=== PATIENT | male | born 1955 | race Caucasian/White ===

== ENCOUNTER 2025-01-26 05:30 | Day surgery (SDC) | payer MEDICARE ==
[2025-01-19 10:45] LABS: MEAN PLATELET VOLUME 8.7 FL (7.4-10.4); PRE OP HEMATOCRIT 46.7 % (42.0-52.0); PRE OP HEMOGLOBIN 15.9 g/dL (14.0-17.9); PRE OP PLATELET COUNT 204 X10'3 (140-440); PRE OP WHITE BLOOD COUNT 6.8 10'3 (4.8-10.8); RED CELL DISTRIBUTION WIDTH 14.3 % (11.5-14.5)
--- NOTE | 2025-01-19 10:56 | ELECTROCARDIOGRAPH REPORT ---
[facility] Test Date: 2025-01-19 Test Time: 10:54:12 Pat Name: KARI DENTON Department: [facility]-PRE-OP Patient ID: [id number] Room: Gender: M Title Attorney: MARIO : 1955 Requested By: ROSS ALMONTE Order Number: [id number] Reading MD: Dr. SOPHIA Bernardo Measurements Intervals [place] Rate: 56 P: 56 SD: 185 QRS: 45 QRSD: 99 T: 64 QT: 416 QTc: 402 Interpretive Statements Sinus bradycardia Electronically Signed On 01-19-2025 17:32:[address] SOPHIA Bernardo Please click the below link to view image of tracing.
[2025-01-19 11:05] LABS: CREATININE 0.88 MG/DL (0.60-1.10); PRE OP ALT 28 U/L (30-65); PRE OP ANION GAP 7 (8-16); PRE OP AST 23 U/L (10-37); PRE OP BILIRUB, TOTAL 0.7 MG/DL (0.0-1.0); PRE OP GLUCOSE 109 MG/DL (70-104); PRE OP POTASSIUM 4.3 MMOL/L (3.4-5.1); PRE OP SODIUM 140 MMOL/L (135-145); TOTAL CARBON DIOXIDE 28.0 MMOL/L (24-32); eGFR 86 ML/MIN
[2025-01-26] VITALS (14 sets, daily range): BP systolic 103–138; BP diastolic 61–87; PULSE 62–94; RESP 15–18; TEMP 97.4; O2SAT 90–98
[~2025-01-26] VITALS: Ht 177.8 cm; Wt 79.5 kg
[~2025-01-26 05:30] MED LIST: ASPI-103 PO; IBUP-1984 PO; MULT-1249 PO; ROSU20TA98 PO
[2025-01-26] MEDS: ringers solution, lacted 1,000 ML IV SCH (06:10)
[2025-01-26] MEDS: clindamycin-Cleocin 900mg/D5W 50 ML IV ONE (06:11)
[2025-01-26] MEDS ORDERED: BUPIVAcaine 2.5mg/ml inj 50ml vial (contains preservative) ONE (06:55)
[2025-01-26] MEDS ORDERED: LIDOcaine 1% 30ml preserv. free vial ONE (06:56)
[2025-01-26] MEDS ORDERED: morphine 4 MG/ML inj SYRINge IV PRN (07:40)
[2025-01-26] MEDS ORDERED: ringers solution, lacted 1,000 ML IV SCH (07:40)
[2025-01-26] MEDS ORDERED: acetaminophen 1,000mg/100ml IV 100 ML IV PRN (07:40)
[2025-01-26] MEDS ORDERED: hydrALAZINE 20mg/ml inj. IV PRN (07:40)
[2025-01-26] MEDS ORDERED: labetalol 20mg/4ml (5mg/ml) syringe IV PRN (07:40)
[2025-01-26] MEDS ORDERED: HYDROmorphone/PF 0.2 MG/ML SYRINGE IV PRN ×2 (07:40)
[2025-01-26] MEDS ORDERED: midazolam 1 mg/ML 2ml injection ONE (07:44)
--- NOTE | 2025-01-26 07:48 | HISTORY AND PHYSICAL ---
History & Physical Providers to CC ~ History of Present Illness Reason for Admit\Complaint: Left inguinal hernia History of Present Illness Michael is here today for elective surgery. He was seen in the office in November of this year and confirmed to have a left inguinal hernia He has a history of robotic assisted laparoscopic prostatectomy as well as open right inguinal hernia repair with mesh In addition to his left inguinal hernia he was having some right groin pain and worried about a possible recurrence He is scheduled today for robotic assisted, laparoscopic left, possible recurrent right inguinal hernia repair with mesh He denies any change in his past medical history since he was seen in the office (please see previous history and physical exam for all pertinent details) Allergies: Coded Allergies: Penicillins (Verified Allergy, Intermediate, HIVES, RASH, 01/25/25) Home Medications Home Medications Active Reported Aspirin 325 Mg Tablet 1 Tab PO DAILY PRN 30 Days Motrin* (Ibuprofen) 400 Mg Tablet 1 Tab PO Q8H 20 Days Multivitamin 1 Each Tablet 1 Tab PO DAILY 30 Days Rosuvastatin Calcium 20 Mg Tablet 1 Tab PO Q48H ROS ROS Reviewed and negative Exam General: 69-year-old male in no acute distress Chest: His lungs are clear to auscultation bilaterally Cardiovascular: Regular rate and rhythm without murmurs Abdomen: Soft and nondistended The left side of the abdomen is marked with indelible ink to correlate with the left inguinal hernia Problems: (1) Left inguinal hernia Assessment & Plan: The risks, benefits, and alternatives to a robotic assisted, laparoscopic left possible right inguinal hernia repair with mesh were discussed with the patient. Risks include, but are not limited to, bleeding, infection, injury to intra-abdominal structures, hernia recurrence and chronic postope rative pain. Patient verbalized understanding and wishes to proceed with surgery. We will do so today as scheduled ROSS ALMONTE MD Jan 26, 2025 07:48
[2025-01-26] MEDS ORDERED: propofol inj 20 ML IV ONE (07:57)
[2025-01-26] MEDS ORDERED: rocuronium 10mg/ml inj IV ONE (07:57)
[2025-01-26] MEDS ORDERED: fentaNYL /PF 50mcg/ml 5ml ampule ONE (07:57)
[2025-01-26] MEDS ORDERED: LIDOcaine 2% (20mg/ml) 5ml vial ONE (07:57)
[2025-01-26] MEDS ORDERED: dexamethasone sod phosphate 4mg/ml inj. ONE (07:58)
[2025-01-26] MEDS ORDERED: ondansetron/PF 4mg/2ml inj ONE (07:58)
[2025-01-26] MEDS: LIDOcaine 1% 30ml preserv. free vial IJ ONE (08:04)
[2025-01-26] MEDS: BUPIVAcaine/PF 2.5 mg/ml (0.25%) 30ml vial IJ ONE (08:04)
[2025-01-26] MEDS ORDERED: 0.9 % SODIUM CHLORIDE 10 ML VIAL ONE (08:07)
[2025-01-26] MEDS ORDERED: ePHEDrine 50MG/ML INJ. ONE (08:08)
[2025-01-26] MEDS ORDERED: glycopyrrolate 0.2mg/ml inj ONE (08:54)
[2025-01-26] MEDS ORDERED: HYDROcodone/acetaminophen 5mg/325mg tablet PO PRN (09:25)
--- NOTE | 2025-01-26 09:27 | OPERATIVE REPORT ---
Operative Report Providers to CC: SUNDAY ALMONTE MD ~ Date of Procedure: Jan 26, 2025 Pre-Operative Diagnosis: Left inguinal hernia Post-Operative Diagnosis SAME as PRE-Op Procedure Performed Robotic assisted, laparoscopic left inguinal hernia repair with mesh Surgeon: Sunday Almonte MD FACS Compliance Tester None Anesthesiologist: Catarina Park Type of Anesthesia: General Findings: Small indirect left inguinal hernia No evidence of right inguinal hernia Evidence of previous laparoscopic prostatectomy Wound class I Complications None Prosthetics\Implants used: Large left Dextile mesh Estimated Blood Loss: Minimal Specimen Removed: None Description of Procedure: Patient was brought to the operating room and identified by the nursing staff and the attending physician. Patient was placed supine and general anesthesia was induced. Patient's abdomen was prepped and draped in standard sterile fashion. Preoperative antibiotics were given. Supraumbilical incision was made to allow for standard Ortega entry technique. Laparoscope was inserted after insufflation. Bilateral, 8.5 mm robotic trochars were placed under laparoscopic guidance following administration of local anesthetic. The da Luc robotic arm was docked to the patient and instruments placed intra-abdominally under laparoscopic visualization. The right hemipelvis was examined and showed no evidence of right inguinal hernia. There was a healed peritoneal incision consistent with a history of prostatectomy. There was no obvious hernia on the left, however, the proximal inguinal canal/internal ring was somewhat obscured due to adhesions of the sigmoid colon. Preperitoneal flap was created and carried down to the symphysis pubis. There was significant scarring given the previous surgery. The retropubic space of Retzius was developed and the bladder swept medially. Dissection was carried out laterally until a indirect left inguinal hernia was identified. This was quite small in size. Hernia was completely mobilized and reduced. Peritoneum was completely dissected away from the cord structures The critical view of the myopectineal orifice was achieved. Dissection was carried out laterally to allow space for mesh deployment. A large left Dextile mesh and suture was passed intra-abdominally. Mesh was laid in the preperitoneal space covering both indirect, direct, and potential femoral and obturator hernias. Mesh laid without wrinkles or folds. 3 tacking sutures using 0 Ethibond were used to fix the mesh at the symphysis pubis, rectus abdominis, and just anterior to the anterior superior iliac spine. The peritoneal rent was then closed with running, 2/0, absorbable locking suture. Kimmell were retrieved. Abdomen was deflated and secondary trochars removed. Fascia at the umbilical port site was closed with 0 Vicryl sutures. Skin incisions were closed with 4-0 Monocryl sutures in a subcuticular fashion. Sterile dressings were applied. Patient was awakened and taken to the postanesthesia care unit in stable condition. Counts repoted as correct: Yes SUNDAY ALMONTE MD Jan 26, 2025 09:27
[2025-01-26] MEDS: ondansetron/PF 4mg/2ml inj IV PRN (10:50)
== END 2025-01-26 11:08 | disposition home or self-care (01) ==
LOC: PAS 05:30
PROVIDERS: ATTEND Surgery
DX: K40.90 Unilateral inguinal hernia, without obstruction or gangrene, not specified as recurrent (principal); E78.5 Hyperlipidemia, unspecified; Z85.46 Personal history of malignant neoplasm of prostate; Z79.1 Long term (current) use of non-steroidal anti-inflammatories (NSAID); Z79.82 Long term (current) use of aspirin; Z79.899 Other long term (current) drug therapy; Z90.79 Acquired absence of other genital organ(s); Z98.890 Other specified postprocedural states; Z88.0 Allergy status to penicillin; Z80.42 Family history of malignant neoplasm of prostate; Z83.3 Family history of diabetes mellitus
CPT/HCPCS: 36415; 49650; 80053; 82948; 85025; 93005; A4215; A4618; C1781; J1100; J1580; J2003; J2250; J2405; J2704; J2710; J3010; J3490; J7030; J7120; Z7506; Z7508; Z7512; Z7610